=== PATIENT | female | born 1930 | race Caucasian/White ===

== ENCOUNTER 2019-02-13 09:28 | Emergency (ER) | payer MEDICARE, OTHER ==
--- NOTE | 2019-02-13 09:47 | ER Document Report ---
ED Medical Screen (RME) - General Chief Complaint: Leg Pain Stated Complaint: LEG PAIN Time Seen by Provider: 02/13/19 09:40 Primary Care Provider: RAMON BYRD MD [Primary Care Provider] - Follow up as needed Mode of Arrival: Wheelchair Information source: Patient Notes: Patient is an 88-year-old female who presents to the emergency department with complaints of bilateral leg pain. Patient reports that she had cortisone injections done to her bilateral knees on . She states that she called Dr. Concepcion this morning who told her to come into the emergency department for further evaluation. Patient is mentioning possible blood clot in her leg. Patient has no history of blood clot. Patient has not had any recent long travel. Patient does not take any anticoagulants. Patient reports generalized pain to both lower extremities but specifically to the anterior lower extremity from the ankle to the knee. Exam: Normal dorsalis pedis pulse. No significant lower extremity swelling. I have greeted and performed a rapid initial assessment of this patient. A comprehensive ED assessment and evaluation of the patient, analysis of test results and completion of the medical decision making process will be conducted by additional ED providers. Dictation of this chart was performed using voice recognition software; therefore, there may be some unintended grammatical errors. TRAVEL OUTSIDE OF THE [place] IN LAST 30 DAYS: No - Related Data Allergies/Adverse Reactions: No Known Allergies Allergy (Unverified 02/13/19 09:35) Physical Exam - Vital signs Vitals: Temp Pulse Resp BP Pulse Ox 98.6 F 79 16 137/92 H 89 L 02/13/19 09:37 02/13/19 09:37 02/13/19 09:37 02/13/19 09:37 02/13/19 09:37 Course - Vital Signs Vital signs: Temp Pulse Resp BP Pulse Ox 98.6 F 79 16 137/92 H 89 L 02/13/19 09:37 02/13/19 09:37 02/13/19 09:37 02/13/19 09:37 02/13/19 09:37 Doctor's Discharge - Discharge Referrals: RAMON BYRD MD [Primary Care Provider] - Follow up as needed
--- NOTE | 2019-02-13 10:14 | ER Document Report ---
ED Medical Screen (RME) - General Chief Complaint: Leg Pain Stated Complaint: LEG PAIN Time Seen by Provider: 02/13/19 09:40 Primary Care Provider: RAMON BYRD MD [ACTIVE STAFF] - Follow up as needed Mode of Arrival: Wheelchair Notes: 88-year-old female with arthritis presents with bilateral popliteal pain and burning, started last night for about 14 hours, not positional or exertional. She also has bilateral leg swelling. The leg swelling is been present since about a day after she received bilateral cortisone injections in her knees. Her knees felt better, then this pain developed last night. She was seen by her primary and was sent here, apparently, to rule out DVT. She does not have pain below the knees. She does not have a history of clots. She has no chest pain or shortness of breath today. TRAVEL OUTSIDE OF THE [place] IN LAST 30 DAYS: No - Related Data Allergies/Adverse Reactions: No Known Allergies Allergy (Unverified 02/13/19 09:35) Past Medical History Renal/ Medical History: Denies: Hx Peritoneal Dialysis Musculoskeltal Medical History: Reports Hx Arthritis Past Surgical History: Reports: Hx Genitourinary Surgery - bladder Physical Exam - Vital signs Vitals: Temp Pulse Resp BP Pulse Ox 98.6 F 79 16 137/92 H 89 L 02/13/19 09:37 02/13/19 09:37 02/13/19 09:37 02/13/19 09:37 02/13/19 09:37 Course - Vital Signs Vital signs: Temp Pulse Resp BP Pulse Ox 99.1 F 66 20 137/65 H 94 02/13/19 11:32 02/13/19 11:32 02/13/19 11:32 02/13/19 11:32 02/13/19 11:32 - Laboratory Result Diagrams: 02/13/19 09:59 02/13/19 09:59 Laboratory results interpreted by me: 02/13/19 02/13/19 02/13/19 09:59 09:59 09:59 RDW 18.4 H Lymphocytes % 7.8 L Monocytes % 15.5 H D-Dimer 1.11 H Sodium 135.3 L Chloride 96 L Carbon Dioxide 32 H Glucose 121 H AST 51 H Doctor's Discharge - Discharge Clinical Impression: Bilateral leg pain Condition: Good Disposition: HOME, SELF-CARE Referrals: RAMON BYRD MD [ACTIVE STAFF] - Follow up as needed
[2019-02-13 10:26] LABS: ABSOLUTE LYMPHOCYTES (AUTO) 0.6 10^3/uL (0.5-4.7); ABSOLUTE MONOCYTES (AUTO) 1.3 10^3/uL (0.1-1.4); ABSOLUTE NEUT (AUTO) 6.3 10^3/uL (1.7-8.2); BASOPHILS % (AUTO) 0.1 % (0-2); EOSINOPHILS % (AUTO) 0.1 % (0-6); HEMATOCRIT 40.6 % (36.0-47.0); HEMOGLOBIN 13.5 g/dL (12.0-15.5); LYMPHOCYTES % (AUTO) 7.8 % (13-45); MEAN CORPUSCULAR HEMOGLOBIN 29.5 pg (27.0-33.4); MEAN CORPUSCULAR HGB CONC 33.2 g/dL (32.0-36.0); MEAN CORPUSCULAR VOLUME 89 fl (80-97); MONOCYTES % (AUTO) 15.5 % (3-13); PLATELET COUNT 276 10^3/uL (150-450); RED BLOOD COUNT 4.56 10^6/uL (3.72-5.28); RED CELL DISTRIBUTION WIDTH 18.4 % (11.5-14.0); SEGMENTED NEUTROPHILS % (AUTO) 76.5 % (42-78); TOTAL CELLS COUNTED % (AUTO) 100 %; WHITE BLOOD COUNT 8.2 10^3/uL (4.0-10.5)
[2019-02-13 10:35] LABS: ALANINE AMINOTRANSFERASE 31 U/L (9-52); ALBUMIN 4.1 g/dL (3.5-5.0); ALKALINE PHOSPHATASE 87 U/L (38-126); ANION GAP 7 (5-19); ASPARTATE AMINO TRANSFERASE 51 U/L (14-36); BILIRUBIN,DIRECT 0.2 mg/dL (0.0-0.4); BILIRUBIN,TOTAL 0.6 mg/dL (0.2-1.3); BLOOD UREA NITROGEN 11 mg/dL (7-20); CALCIUM 9.8 mg/dL (8.4-10.2); CARBON DIOXIDE 32 mmol/L (22-30); CHLORIDE 96 mmol/L (98-107); GLUCOSE 121 mg/dL (75-110); SODIUM 135.3 mmol/L (137-145); TOTAL PROTEIN 7.6 g/dL (6.3-8.2)
[2019-02-13 11:33] VITALS: BP 137/65
--- NOTE | 2019-02-13 11:45 | XCELERA REPORT ---
[address] [facility] [address] Lower Extremity Venous Evaluation Procedure: Color flow and duplex imaging bilaterally of the veins of the lower extremities as well as the Common Femoral veins. Right Sided Venous Evaluation Normal vessel filling wall to wall, compression and augmentation as well as Colour flow down to the infrageniculate veins. Left Sided Venous Evaluation Normal vessel filling wall to wall, compression and augmentation as well as Colour flow down to the infrageniculate veins. Interpretation Summary No duplex evidence of DVT or obstruction in the bilateral lower extremities. Name: MARTÍN RESTREPO Age: 88 yrs Gender: Female : [id number] Patient Status: Emergency Patient Location: ER Study Date: 02/13/2019 10:52 AM Reason For Study: Greater than right leg swelling popliteal pain and Ordering Physician: YASMANI BASILIO Performed By: Alexia Montero : YASMANI BASILIO > [place]
--- NOTE | 2019-02-13 20:47 | EKG REPORT ---
SEVERITY:- ABNORMAL ECG - SINUS RHYTHM NONSPECIFIC IVCD WITH LAD LEFT VENTRICULAR HYPERTROPHY : Confirmed by: Sukhi Gamboa 13-Feb-2019 20:46:24
== END 2019-02-13 12:00 | disposition home or self-care (01) ==
LOC: ER 09:28
DX: M25.561 Pain in right knee (principal); M25.562 Pain in left knee; M79.89 Other specified soft tissue disorders; Z98.890 Other specified postprocedural states
CPT/HCPCS: 36415; 80053; 84484; 85025; 85379; 93005; 93010; 93970; 99284